=== PATIENT | male | born 1945 | race Caucasian/White ===

== ENCOUNTER 2019-03-31 12:12 | Inpatient (IN) ==
[2019-03-24 12:08] LABS: Appearance,Urine CLEAR; Bilirubin,Urine NEG (NEG); Color,Urine YELLOW; Culture Indicated,Urine NO; Glucose,Urine (UA) NEGATIVE (NEG); Ketones,Urine NEG (NEG); Leukocyte Esterase,Urine NEG /uL (NEG); Nitrate,Urine NEG (NEG); Protein,Urine NEG (NEG); Specific Gravity,Urine 1.015 (1.000-1.035); Urine Blood NEG mg/dL (<0.03); Urobilinogen,Urine NEG (NEG)
[2019-03-24 14:44] LABS: Basophils # (Auto) 0 K/mcL (0.0-0.3); Basophils % (Auto) 0.6 % (0.0-2.0); Eosinophils # (Auto) 0.2 K/mcL (0.0-0.7); Eosinophils % (Auto) 2.4 % (0.0-7.0); Granulocytes % (Auto) 71.1 % (38.0-78.0); Hemoglobin 14.3 g/dL (13.5-16.5); Lymphocytes # (Auto) 1.3 K/mcL (1.5-4.8); Lymphocytes % (Auto) 19.9 % (15.5-49.0); Mean Cell Volume 85.7 fL (80.0-100.0); Mean Corpuscular HGB Conc 32.4 g/dL (31.0-36.0); Mean Platelet Volume 7.3 fL (7.4-10.4); Monocytes # (Auto) 0.4 K/mcL (0.1-0.9); Platelet Count 340 K/mcL (140-440); RBC 5.14 M/mcL (4.50-5.90); Red Cell Distribution Width 14.4 % (11.5-14.5); WBC 6.4 K/mcL (4.5-11.0)
[2019-03-24 14:44] LABS: Blood Urea Nitrogen 19 mg/dl (8-23); Calcium 9.4 mg/dl (8.6-10.4); Carbon Dioxide 23 mmol/L (22-30); Chloride 103 mmol/L (96-108); Glomerular Filtration Rate 86; Glucose 110 mg/dL (70-105); Potassium 4.1 mmol/L (3.3-5.1); Sodium 139 mmol/L (133-145)
[2019-03-24 15:00] LABS: INR 0.9 (0.9-1.1)
[2019-03-24 15:01] LABS: Estimated Average Glucose(eAG) 174 mg/dL; Hemoglobin A1C 7.7 % HGB (4.0-6.0)
[~2019-03-31 12:12] MED LIST: 0.9 % SODIUM CHLORIDE 9 ML, KETOROLAC 30 MG, ROPIVACAINE HCL/PF 49.5 ML, EPINEPHrine 0.... IJ SCH; CELECOXIB 200 MG CAPSULE PO SCH; LORazepam 1 MG TABLET PO ONE; PREGABALIN 75 MG CAPSULE PO SCH; ceFAZolin 2 GM in DEXTROSE 5% IN WATER 50 ML IV SCH; oxyCODONE 10 MG TAB.ER.12H PO SCH
[2019-03-31] MEDS ORDERED: IPRATROPIUM/ALBUTEROL 3 ML AMPUL.NEB NEB PRN ×2 (13:00→17:37)
[2019-03-31] MEDS ORDERED: SCOPOLAMINE 1 PATCH PATCH TOPICAL PRN (13:00)
[2019-03-31] MEDS ORDERED: LIDOCAINE HCL/PF 100 MG/5 ML SYRINGE IV ONE (15:50)
[2019-03-31] MEDS ORDERED: PROPOFOL 200 MG/20 ML VIAL IV ONE (15:50)
[2019-03-31] MEDS ORDERED: DEXAMETHASONE 10 MG/ML VIAL IV ONE (15:50)
[2019-03-31] MEDS ORDERED: MIDAZOLAM 5 MG/5 ML VIAL IV ONE (15:50)
[2019-03-31] MEDS ORDERED: ePHEDrine 50 MG/ML AMPUL IV ONE (15:50)
[2019-03-31] MEDS ORDERED: fentaNYL 100 MCG/2 ML VIAL IV ONE (15:50)
[2019-03-31] MEDS ORDERED: ROPIVACAINE HCL/PF 20 ML VIAL IJ ONE (15:50)
[2019-03-31] MEDS ORDERED: ONDANSETRON 4 MG/2 ML VIAL IV ONE (15:50)
[2019-03-31] MEDS ORDERED: GENTAMICIN SULFATE 800 MG/20 ML VIAL IR ONE (17:01)
[2019-03-31] MEDS ORDERED: diphenhydrAMINE 50 MG/ML VIAL IV PRN (17:37)
[2019-03-31] MEDS ORDERED: MEPERIDINE 25 MG/ML SYRINGE IV PRN (17:37)
[2019-03-31] MEDS ORDERED: LACTATED RINGERS 250 ML IV PRN (17:37)
[2019-03-31] MEDS ORDERED: NALOXONE HCL 0.4 MG/ML VIAL IV PRN (17:37)
[2019-03-31] MEDS ORDERED: FLUMAZENIL 0.1 MG/ML ML IV PRN (17:37)
[2019-03-31] MEDS ORDERED: ACETAMINOPHEN 1,000 MG/100 ML BOTTLE IV ONE (17:37)
[2019-03-31] MEDS ORDERED: PROMETHAZINE 25 MG/ML VIAL IV PRN (17:37)
[2019-03-31] MEDS ORDERED: ONDANSETRON 4 MG/2 ML VIAL IV PRN ×2 (17:37→18:49)
[2019-03-31] MEDS ORDERED: LACTATED RINGERS 1,000 ML IV SCH (17:45)
--- NOTE | 2019-03-31 18:48 | Brief Operative Note ---
Date of procedure: 03/31/19 Pre-op diagnosis: left failed TKA Post-op diagnosis: same Procedure: left revision TKA femur and tibia Grafts/Implants: Yes Anesthesia: spinal Findings: no evidence of infection but components loosened Complications: none Surgeon: Ceasar Bishop Supervisor Contingents: Louise García Estimated blood loss (cc): 200 Tourniquet Time (Minutes): 97 Specimens Removed/Pathology: other (frozen x 3, cultures x 2) Condition: stable Disposition: PACU
[2019-03-31] MEDS ORDERED: HYDROcodone/APAP 10/325MG TABLET PO PRN (18:49)
[2019-03-31] MEDS ORDERED: BENZOCAINE/MENTHOL 1 LOZENGE PO PRN (18:49)
[2019-03-31] MEDS ORDERED: BISACODYL 10 MG SUPP.RECT PR PRN (18:49)
[2019-03-31] MEDS ORDERED: FLEETS ADULT ENEMA PR PRN (18:49)
[2019-03-31] MEDS ORDERED: MAGNESIUM HYDROXIDE 30 ML ORAL.SUSP PO PRN (18:49)
[2019-03-31] MEDS ORDERED: TRANEXAMIC ACID 1,000 MG/10 ML VIAL IV ONE (18:49)
[2019-03-31] MEDS ORDERED: POLYETHYLENE GLYCOL 3350 17 GM PACKET PO PRN (18:49)
[2019-03-31] MEDS ORDERED: DEXTROSE 50% 50 ML VIAL IV PRN (18:49)
[2019-03-31] MEDS ORDERED: ONDANSETRON 4 MG ODT TABLET SL PRN (18:49)
[2019-03-31] MEDS ORDERED: DEXTROSE 31 GM ORAL.SUSP PO PRN (18:49)
[2019-03-31] MEDS ORDERED: METHOCARBAMOL 750 MG TABLET PO PRN (18:49)
[2019-03-31] MEDS: fentaNYL 100 MCG/2 ML VIAL IV PRN ×4 (18:51→19:09)
[2019-03-31] MEDS ORDERED: HYDROmorphone 2 MG/ML VIAL ONE (19:02)
[2019-03-31] MEDS ORDERED: HYDROmorphone 2 MG/ML VIAL IV PRN (19:04)
[2019-03-31] MEDS: 0.9 % SODIUM CHLORIDE 1,000 ML IV SCH (19:41)
--- NOTE | 2019-03-31 19:45 | XRay Report ---
CLINICAL INFORMATION: Postsurgical follow-up TECHNIQUE: AP and crosstable lateral left knee COMPARISON: None. FINDINGS: Status post left total knee arthroplasty. Alignment is anatomic. There is postsurgical soft tissue and intra-articular gas IMPRESSION: Status post left total knee arthroplasty Interpreted and Authenticated by: Ceasar Ferrer 03/31/19
[2019-03-31] MEDS: ASPIRIN 81 MG TAB.CHEW PO SCH (20:37)
[2019-03-31] MEDS: DOCUSATE SODIUM 100 MG CAPSULE PO SCH (20:38)
[2019-03-31] MEDS ORDERED: SENNOSIDES 1 TABLET PO SCH (21:00)
[2019-03-31] MEDS ORDERED: [UNRECOGNIZED DRUG - OTHER] PO SCH (21:00)
[2019-03-31] MEDS ORDERED: DUTASTERIDE 0.5 MG CAPSULE PO SCH (21:00)
[2019-03-31] MEDS ORDERED: TAMSULOSIN HCL PO SCH (21:00)
[2019-03-31] MEDS ORDERED: SIMVASTATIN 10 MG TABLET PO SCH (21:00)
[2019-03-31] MEDS ORDERED: PRAVASTATIN 40 MG TABLET PO SCH (21:00)
[2019-03-31] MEDS ORDERED: TAMSULOSIN 0.4 MG CAPSULE PO SCH (21:00)
[2019-03-31] MEDS ORDERED: DUTASTERIDE PO SCH (21:00)
[2019-03-31] MEDS: INSULIN LISPRO 1 UNIT/0.01 ML UNIT SQ SCH (21:43)
[2019-04-01] MEDS: ceFAZolin 1 GM VIAL IV SCH ×2 (00:21→05:53)
[2019-04-01] MEDS: 0.9 % SODIUM CHLORIDE 10 ML SYRINGE IV SCH ×2 (00:27→05:54)
[2019-04-01] MEDS: KETOROLAC 15 MG/ML VIAL IV SCH ×2 (00:33→05:54)
[2019-04-01] MEDS: 0.9 % SODIUM CHLORIDE 1,000 ML IV SCH (03:45)
[2019-04-01 05:39] LABS: Hematocrit 32.8 % (41.0-55.0); Hemoglobin 10.9 g/dL (13.5-16.5)
[2019-04-01] MEDS ORDERED: PANTOPRAZOLE 40 MG TABLET PO SCH (07:30)
[2019-04-01] MEDS: INSULIN LISPRO 1 UNIT/0.01 ML UNIT SQ SCH (07:41)
--- NOTE | 2019-04-01 07:50 | Orthopedic Progress Note ---
Subjective Patient information: Note initiated : 04/01/19 at 7:49 am Service Date, if different from initiated Date: [] Patient: Rudy Troncoso 73 y/o M admitted on 03/31/19 for Left Total Knee Revision. Chief Complaint: [] Interval history: doing well. minimal pain Objective Vital signs: Vital Signs Temp Pulse Resp BP Pulse Ox 04/01/19 03:05 98.8 F 106 H 20 123/69 95 04/01/19 01:07 102 H 100/59 92 03/31/19 22:28 97.5 F 97 H 16 97/60 98 03/31/19 21:28 102 H 104/66 95 03/31/19 20:58 99 H 107/68 98 03/31/19 20:28 98 H 128/70 84 L 03/31/19 20:13 102 H 122/75 99 03/31/19 19:58 100 H 118/70 97 03/31/19 19:43 107 H 121/68 94 03/31/19 19:28 97.6 F 110 H 16 126/75 92 03/31/19 19:21 97.9 F 108 H 20 145/73 95 03/31/19 19:05 112 H 18 170/75 94 03/31/19 18:50 97.6 F 112 H 22 135/80 96 03/31/19 18:35 97.5 F 114 H 17 132/71 100 03/31/19 18:30 98 H 19 160/75 99 03/31/19 18:25 102 H 14 149/73 99 03/31/19 18:20 96.9 F L 90 14 126/68 99 03/31/19 12:12 98.6 F 94 H 14 150/89 97 Intake and Output 03/31/19 04/01/19 04/01/19 21:59 05:59 13:59 Intake Total 2049 2100 Output Total 320 250 Balance 1730 1850 Intake: IV 100 1000 Sodium Chloride 0.9% 1,000 ml @ 1000 125 mls/hr IV .Q8H [facility] Rx#: [id number] Oral 1100 IV - Manual Only 1950 Output: Urine Catheter Amount 300 200 Void Amount 50 Estimated Blood Loss 20 Other: Meal Egg salad sandwich sandwichesx2 Percent of Meal Consumed 100% 100% Feeding Ability Independent Independent Urine Appearance Clear Clear Uretheral (Kwok) Clear Urine Color Pale Dark Yellow Uretheral (Kwok) Pale Urine Odor Strong Weight 217 lb Intake & Output: Intake & Output 03/31/19 04/01/19 04/01/19 21:59 05:59 13:59 Intake Total 2049 2100 Output Total 320 250 Balance 1730 1850 Weight 217 lb Intake: IV 100 1000 Sodium Chloride 0.9% 1,000 ml @ 1000 125 mls/hr IV .Q8H [facility] Rx#: [id number] Oral 1100 IV - Manual Only 1950 Output: Urine Catheter Amount 300 200 Void Amount 50 Estimated Blood Loss 20 Other: Meal Egg salad sandwich sandwichesx2 Percent of Meal Consumed 100% 100% Feeding Ability Independent Independent Urine Appearance Clear Clear Uretheral (Kwok) Clear Urine Color Pale Dark Yellow Uretheral (Kwok) Pale Urine Odor Strong Incision: Yes healing Incision clean and dry: Yes Dressing: Yes clean, Yes dry, Yes intact Weight bearing status: full Neurological exam IM: Yes abnormal gait, Yes alert, Yes oriented X3, Yes neurova scular intact Extremities exam IM: No calf tenderness, Yes Foot pink and warm, Yes neurovascular intact - Labs CBC & BMP: 04/01/19 04:42 03/24/19 10:38 Labs: Orthopedic Labs 03/24/19 10:38 PT 12.0 INR 0.9 04/01/19 03/24/19 04:42 10:39 Hgb 10.9 L 14.3 Hct 32.8 L 44.0 Assessment and Plan (1) Knee osteoarthritis pod 1 s/p revision tka wbat pain control dvt prophylaxis d/c planning Status: Acute
--- NOTE | 2019-04-01 07:51 | Discharge Summary ---
Ortho Discharge - TKA - Patient Instructions Diet: Regular Diet Activity: activity as tolerated, ambulate with assistive device, weight bearing as tolerated Total Knee Protocol: For Total Knee: Start ROM TRACY with stationary bike or rocking chair. Work on gaining full extension of knee. Posterior dislocation precautions provided. Hip abductor strengthening and gait training instructions provided. Apply Cryocuff as instructed. Dressing Care: May shower in 2 days Patient Education: Revision Total Joint Arthroplasty (DC) - Problem Maintenance (1) Knee osteoarthritis Status: Acute - Follow Up Plan Follow Up Appointments: Louise García PA-C [Physician Screen Printing Supervisor] - 04/13/19 11:00 am Disposition: Home, Self-Care Prognosis: Good Rehab Potential: Good I certify that the patient requires SNF services: No Overall status at discharge: patient is progressing back to baseline
[2019-04-01] MEDS ORDERED: metFORMIN 500 MG TABLET PO SCH (08:00)
--- NOTE | 2019-04-01 08:17 | Operative Note ---
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 PROCEDURE: Revision left total knee arthroplasty of femoral and tibial components. SURGEON: Kim Bishop M.D. PLANT TECHNICAL SPECIALIST SURGEON: Louise García PA-C. The PA's assistance was required for the safe and efficient completion of the entire case. This provider's expertise and technical skill were required throughout the case. The PA assisted with preoperative coordination, intraoperative retraction, wound closure, dressing and splint application, as well as postoperative documentation and care coordination. ANESTHESIA: Spinal with LMA assist. ESTIMATED BLOOD LOSS: 200 mL. COMPLICATIONS: None noted. SPECIMENS REMOVED: Frozen specimen x3 and cultures x2. DRAINS: None. TOURNIQUET TIME: 97 minutes at 300 mmHg. IMPLANTS: DePuy CMW2 gentamicin bone cement 20 grams x4; DePuy Attune knee system revision tibial base rotating platform size 7, cemented; DePuy Attune revision press-fit stem 18 x 80; DePuy Attune revision tibial augment universal, cemented, 7/8, 5 mm x2; DePuy Attune revision CRS rotating platform insert size 8, 8 mm AOX; DePuy Attune revision femoral size 8 left, cemented; DePuy Attune revision press-fit stem 20 x 60; DePuy Attune revision posterior femoral augment size 8, 4 mm AOX. INDICATIONS: The patient has had a previous total knee arthroplasty. He has gone on to develop pain in the knee and no evidence of infection but was found to have loosening around both components. This was confirmed with radiographs and bone scan. After a long discussion about treatment options, the patient elected to proceed with a revision total knee arthroplasty of both components. The risks and benefits were discussed with the patient in detail including, but not limited to, the risks of anesthesia, problems with the heart or lungs related to anesthesia, infection, compromise or injury to the nerves and blood vessels, deep venous thrombosis, pulmonary embolism, pneumonia, continued pain after surgery, worsening pain or symptoms after surgery, swelling, loss of motion, instability, leg length discrepancy, and need for repeat surgery. DESCRIPTION OF PROCEDURE: The patient was seen in the pre-anesthesia waiting room where all questions were answered and the correct side and site were identified and marked. The patient was transferred to the operating room and administered the anesthetic and given pre-operative antibiotics. A time-out was then called. The extremity was prepped and draped, exsanguinated, and the tourniquet was inflated to 300 mmHg. A midline skin incision was then made and a standard medial parapatellar arthrotomy was performed. I debrided scar tissue from the infrapatellar fat pad underneath the quadriceps tendon and in the medial and lateral gutter. I took some sample tissue from the infrapatellar fat pad and sent this to Pathology. We then made a lateral release and were able to get down to the tibial component. I first went to the femoral component and used a flexible osteotome all the way around. The bone was soft and spongy underneath. I was able to loosen up the femoral component and then I was able to punch this out in a standard fashion, losing minimal bone. The tibial component was also punched in a similar manner. After using a flexible osteotome, it was easily removed with minimal bone loss. I took samples from both the femoral and the tibial under the prosthesis and sent this to Pathology for frozen specimens and I also took cultures. Frozen specimens demonstrated no white cells per high-powered field so we were able to proceed with the rest of the revision surgery. We then turned our attention to the tibia. The intramedullary access was achieved. I reamed up to a size 18. We then placed a trial rotating platform. We were able to get our version in rotation. We punched and placed the trial after freshening up and then we placed a 5 mm cut after I did an intramedullary guide to freshen up the tibial cut. I put a trial on and then our attention was turned next towards the femur. I then sequentially reamed up on the femur to a size 20 mm. I placed the distal femoral block, and we freshened up the cut along the whole distal femur. I ended up using a 4 mm augment posterior medial. The 20 mm femoral stem was then placed with a femoral implant. We used polyethylene liner and we came up to a size 8 mm thickness which we were able to achieve full extension and flexion, stable to varus and valgus stress all the way through. We then turned our attention to the patella. We everted the patella. There was a significant amount of scar tissue and bone grown up over the patella component. I completely excised this with osteotome and rongeur, as well as the fibrous tissue. The patella itself had a good polyethylene base, and I elected to leave this intact. It tracked well within the trochlear groove on this templating. We removed all trials, irrigated and dried all cut surfaces. We cemented the components into place including tibia, femur and patella. We placed a trial liner and held the knee in full extension with the patella compressed while the cement cured. We then removed all excess cement and placed the final polyethylene tibiofemoral component. Irrigation with 3 liters of antibiotic saline was then performed using jet-lavage. We let the tourniquet down and coagulated bleeding vessels. We injected a 100 cubic centimeter volume including Ropivacaine 49.25 cubic centimeters at 5 milligrams per cubic centimeter, Ketorolac 30 milligrams, and Epinephrine 0.5 milligrams into 100 cubic centimeters volume of normal saline. We closed the retinaculum with #2 Stratafix and 0 Vicryl. We closed the subcutaneous tissue and skin in layers out to Dermabond on the skin. A sterile pressure dressing was applied. All needle and sponge counts were correct. The patient was transferred to the recovery room in stable condition. Parisa Job ID: [id number] Doc ID: [id number] Kim Bishop MD
[2019-04-01] MEDS: ASPIRIN 81 MG TAB.CHEW PO SCH (08:34)
[2019-04-01] MEDS: DOCUSATE SODIUM 100 MG CAPSULE PO SCH (08:34)
[2019-04-01] MEDS ORDERED: TRESIBA U INSULIN SC SCH (09:00)
[2019-04-01] MEDS ORDERED: LOSARTAN 50 MG TABLET PO SCH (09:00)
[2019-04-01] MEDS ORDERED: MULTIVIT,THER IRON,CA,FA & MIN 1 TABLET PO SCH (09:00)
[2019-04-01] MEDS ORDERED: CLOPIDOGREL 75 MG TABLET PO SCH (09:00)
[2019-04-01] MEDS ORDERED: amLODIPine 5 MG TABLET PO SCH (09:00)
--- NOTE | 2019-04-03 12:04 | Surgical Pathology Report ---
HISTOLOGY SPECIMEN MICROSCOPIC DIAGNOSIS SPECIMEN A - SOFT TISSUE, LEFT KNEE INFRAPATELLAR FAT PAD, BIOPSY: -- FIBROVASCULAR TISSUE WITH MILD CHRONIC INFLAMMATION AND NO SIGNIFICANT ACUTE INFLAMMATION. SPECIMEN B - BONE, LEFT FEMUR, BIOPSY: -- NO DIAGNOSTIC ALTERATIONS. -- NO ACUTE INFLAMMATION IDENTIFIED. SPECIMEN C - BONE, LEFT TIBIA, BIOPSY: -- NO DIAGNOSTIC ALTERATIONS. -- NO ACUTE INFLAMMATION IDENTIFIED. (RLF:sln) INTRAOPERATIVE CONSULTATION FROZEN SECTION DIAGNOSES (Performed at [facility], [place], [place]) FSA - INFRAPATELLAR FAT PAD, EXCISION: -- NO SIGNIFICANT ACUTE INFLAMMATION. -- LESS THAN 1 NEUTROPHIL/hpf. FSB - FEMORAL BONE, BIOPSY: -- NO SIGNIFICANT ACUTE INFLAMMATION. -- LESS THAN 1 NEUTROPHIL/hpf. FSC - TIBIAL BONE, BIOPSY: -- NO SIGNIFICANT ACUTE INFLAMMATION. -- LESS THAN 1 NEUTROPHIL/hpf. (EBD:sln) GROSS DESCRIPTION Specimen A: Received fresh labeled infrapatellar fat pad, is a irizarry-jimenes soft tissue fragment that measures 1.8 x 1.3 x 0.8 cm. The specimen is sectioned and submitted entirely for frozen section in one cassette. Specimen B: Received fresh labeled femoral bone, is jimenes-pink hard tissue consistent with bone that measures 1.2 x 0.8 x 0.7 cm. The specimen is submitted entirely for frozen section in one cassette. Specimen C: Received fresh labeled tibial bone, are multiple fragments of hard granular jimenes-pink tissue that measure 0.8 x 0.5 x 0.3 cm in aggregate. The specimen is submitted entirely for frozen section in one cassette. (EBD:sln) Electronically Signed by: Tia Bergeron M.D.
== END 2019-04-01 10:45 | disposition home or self-care (01) | DRG 468 ==
LOC: ICU 12:12 → MEDSUR 18:37
PROVIDERS: ADMIT Orthopaedic Surgery Sports Medicine; ATTEND Orthopaedic Surgery Sports Medicine